=== PATIENT | female | born 1995 ===

== ENCOUNTER → 2017-04-05 | Outpatient (CLI) | payer OTHER ==
--- NOTE | 2017-04-05 10:55 | DIAGNOSTIC IMAGING REPORT ---
LUMBAR SPINE MIN 4 VIEWS HISTORY: Trauma. Pain. LOWER BACK INJURY, LEFT ANKLE INJURY COMPARISON: None. FINDINGS: There is no fracture. Minimal scoliosis Disc spaces are preserved. IMPRESSION: No fracture or subluxation within the lumbar spine. Minimal scoliosis possibly on the basis of muscular spasm. The above report was generated using voice recognition software. It may contain grammatical, syntax or spelling errors. Electronically signed by: Omar Small M.D. 04/05/2017 10:53 AM Dictated Date/Time: 04/05/2017 10:52 AM
--- NOTE | 2017-04-05 10:58 | DIAGNOSTIC IMAGING REPORT ---
L ANKLE MIN 3 VIEWS CLINICAL HISTORY: LOWER BACK INJURY, LEFT ANKLE INJURY trauma. Pain. COMPARISON: None. DISCUSSION: The bones and joint spaces appear intact. There is no evidence of fracture, dislocation or bony disease. There is no evidence for soft tissue swelling. IMPRESSION: Negative study. The above report was generated using voice recognition software. It may contain grammatical, syntax or spelling errors. Electronically signed by: Omar Small M.D. 04/05/2017 10:56 AM Dictated Date/Time: 04/05/2017 10:56 AM
== END | disposition home or self-care (01) ==
LOC: C.RDSM 10:30
PROVIDERS: ATTEND Physician Assistant
DX: S99.919A Unspecified injury of unspecified ankle, initial encounter (principal); S39.92XA Unspecified injury of lower back, initial encounter; X58.XXXA Exposure to other specified factors, initial encounter